=== PATIENT | male | born 1945 | race Caucasian/White ===

== ENCOUNTER 2018-12-21 12:15 | Emergency (ER) | payer MEDICARE, OTHER ==
[~2018-12-21] VITALS: Ht 172.7 cm; Wt 98.2 kg
[2018-12-21 13:01] VITALS: BP 189/90
--- NOTE | 2018-12-21 13:09 | NUR ---
PT PRESENTED TO ED IN NEED OF HOME RX MEDS. [place] AND FORGOT HIS MEDS. PT NOTED TO BE HYPERTENSIVE IN TRIAGE. PT DENIES ANY MEDICAL COMPLAINTS (THOMAS, DIZZINESS, CHEST PAIN, ETC). DARYL TO BEDSIDE. PT PROVIDED WITH RX TO FILL AT PHARMACY. PT GIVEN DC INSTRUCTIONS AND PT AND FAMILY MEMBER EXPRESSED UNDERSTANDING OF TEACHING. PT LEFT WITH ALL PERSONAL BELONGINGS. PT AMBULATORY TO DC DESK WITH STEADY GAIT.
== END 2018-12-21 13:53 | disposition home or self-care (01) ==
LOC: ED 13:00
DX: E11.9 Type 2 diabetes mellitus without complications (principal); I10 Essential (primary) hypertension
CPT/HCPCS: 82962; 99283